=== PATIENT | female | born 1940 | race Caucasian/White ===

== ENCOUNTER → 2019-02-11 | Day surgery (SDC) | payer MEDICARE, BC ==
[2019-02-07 12:47] LABS: BASOPHILS # (AUTO) 0.1 (0.0-0.1); BASOPHILS % 0.6 % (0.0-1.0); EOSINOPHILS # (AUTO) 0.2 (0.0-0.4); EOSINOPHILS % 1.6 % (0.0-6.0); HEMATOCRIT 37.9 % (34.2-44.1); HEMOGLOBIN 12.3 g/dL (12.0-16.0); LYMPHOCYTES # (AUTO) 5.9 (1.0-3.2); LYMPHOCYTES % 52.7 % (18.0-39.1); MEAN CORPUSCULAR HEMOGLOBIN 29.9 pg (28-32); MEAN CORPUSCULAR HGB CONC 32.5 g/dL (31-35); MEAN CORPUSCULAR VOLUME 92.2 fL (81-99); MONOCYTES # (AUTO) 0.5 (0.2-0.8); MONOCYTES % 4.4 % (4.4-11.3); NEUTROPHILS # (AUTO) 4.4 (2.1-6.9); NEUTROPHILS % 39.7 % (38.7-80.0); PLATELET COUNT 247 x10e3/uL (140-360); RED BLOOD COUNT 4.11 x10e6/uL (3.6-5.1); RED CELL DISTRIBUTION WIDTH 13.2 % (11.7-14.4)
[2019-02-07 13:11] LABS: ANION GAP 9.6 mmol/L (8-16); BLOOD UREA NITROGEN 17 mg/dL (7-26); BUN/CREATININE RATIO 22 (6-25); CALCIUM 10.9 mg/dL (8.4-10.2); CARBON DIOXIDE 28 mmol/L (22-29); CHLORIDE 106 mmol/L (98-107); EST GLOMERULAR FILTRATION RATE > 60 ML/MIN (60-); POTASSIUM 4.6 mmol/L (3.5-5.1); SODIUM 139 mmol/L (136-145)
--- NOTE | 2019-02-07 13:27 | Diagnostic Imaging Report ---
Chest, PA and lateral. History: Preoperative evaluation for finger surgery. Comparison: None available. Discussion: The cardiomediastinal silhouette and pulmonary vasculature are within normal limits. The lungs are clear without evidence of consolidation or effusion. There are no acute osseous abnormalities. IMPRESSION: No radiographic evidence of acute cardiopulmonary abnormality. Signed by: Hernán Del Rosario MD on 02/07/2019 1:24 PM
[2019-02-07 13:32] LABS: CREATININE, SERUM 0.84 mg/dL (0.57-1.11); GLUCOSE 93 mg/dL (74-118)
[~2019-02-11] MED LIST: BUPIVACAINE HCL 0.5% INJ 30 ML VIAL INJ ONE; CLINDAMYCIN 600MG / 50ML 50 ML IV ONE; FENOFIBRATE145 MG PO; FENTANYL CITRATE/PF 100MCG/2 ML INJ ONE; HYDROCHLOROTH12.5 M1 PO; LIDOCAINE HCL 1% LOCAL INJ 20 ML VIAL ONE; LIDOCAINE HCL 2% LOCAL INJ 5 ML SDV VIAL INJ ONE; MICARDIS40 MG PO; MUPIROCIN 2% OINT 22 GM TUBE ONE; ONDANSETRON HCL INJ 2MG/ML 2ML 2 MG/ML VIAL ONE; PROPOFOL IV EMULSION 10 MG/ML 20 ML VIAL ONE; VITAMIN D31000 UNI1 PO
--- OUTSIDE RECORDS SUMMARY | 2019-02-11 05:09 | XMS REPORT | Clinical Summary ---
Author Author [facility] Address Unknown Phone Unavailable Care Team Providers Care Medical Manager Name Role Phone Inocente Calderón MD PCP Allergies Comments Active Allergy Reactions Severity Noted Date Penicillins 08/05/2015 Salicylates 08/05/2015 Vancomycin 08/05/2015 Medications End Date Status Medication Sig Dispensed Refills Start Date 11/27/2019 Active telmisartan (MICARDIS) 20 Take 1 tablet 90 tablet 1 MG tablet (20 mg total) 9 by mouth daily. Active fenofibrate (LOFIBRA) 54 Take 1 tablet 90 tablet 1 MG tablet (54 mg total) 9 by mouth once daily. 11/27/2019 Active hydroCHLOROthiazide Take 1 tablet 90 tablet 1 (HYDRODIURIL) 12.5 MG (12.5 mg 9 tablet total) by mouth daily. 05/30/2018 Discontinued (Reorder) fenofibrate (LOFIBRA) 54 Take 1 tablet 90 tablet 1 MG tablet (54 mg total) 8 by mouth once daily. 05/30/2018 Discontinued (Reorder) telmisartan (MICARDIS) 20 Take 1 tablet 30 tablet 5 MG tablet (20 mg total) 8 by mouth daily. 05/30/2018 Discontinued (Reorder) hydroCHLOROthiazide Take 1 tablet 30 tablet 5 (HYDRODIURIL) 12.5 MG (12.5 mg 8 tablet total) by mouth daily. 11/27/2018 Discontinued (Reorder) telmisartan (MICARDIS) 20 Take 1 tablet 30 tablet 5 MG tablet (20 mg total) 9 by mouth daily. 11/27/2018 Discontinued (Reorder) fenofibrate (LOFIBRA) 54 Take 1 tablet 90 tablet 1 MG tablet (54 mg total) 9 by mouth once daily. 11/27/2018 Discontinued (Reorder) hydroCHLOROthiazide Take 1 tablet 30 tablet 5 (HYDRODIURIL) 12.5 MG (12.5 mg 9 tablet total) by mouth daily. Active Problems Problem Noted Date Family history of rheumatoid arthritis 11/27/2018 Osteoarthritis of right shoulder 11/27/2018 Lumbosacral dysfunction 11/27/2018 Influenza vaccination given 05/30/2018 Aspirin intolerance 05/30/2017 BMI 28.0-28.9,adult 05/30/2017 Pneumococcal vaccination administered at current visit 11/17/2016 Chronic paronychia of finger 11/17/2016 Colon cancer screening 09/27/2015 Menopausal syndrome 08/05/2015 Cervical spondylosis without myelopathy 02/19/2013 Mixed hyperlipidemia 09/08/2011 Osteoarthritis of knee 09/08/2011 Benign essential hypertension 12/12/2010 Degenerative joint disease involving multiple joints 12/12/2010 Resolved Problems Problem Noted Date Resolved Date Hypercalcemia 02/19/2013 11/27/2018 Adrenogenital disorder 12/12/2010 05/30/2018 Encounters Care Team Description Date Type Specialty Inocente Calderón MD Benign essential hypertension (Primary Dx); Colon cancer screening; Mixed hyperlipidemia; Lumbosacral dysfunction; Osteoarthritis of right shoulder, unspecified osteoarthritis type; Family history of rheumatoid arthritis 11/27/2018 Office Visit Family Medicine Maria Del Carmen Serrano MA Special screening for malignant neoplasms, colon (Primary Dx); Colon cancer screening 07/03/2018 Orders Only Family Medicine Inocente Calderón MD 05/31/2018 Orders Only Family Medicine Inocente Calderón MD Benign essential hypertension (Primary Dx); BMI 29.0-29.9,adult; Mixed hyperlipidemia; Influenza vaccination given; Colon cancer screening; Hypercalcemia; Seasonal allergic rhinitis due to pollen 05/30/2018 Office Visit Family Medicine after 02/10/2018 Immunizations Name Administration Dates Next Due FLUZONE HIGH-DOSE PF 05/30/2018, 02/21/2017 Pneumococcal Conjugate 11/17/2016 13-Valent Pneumococcal 11/27/2017 Polysaccharide Family History Medical History Relation Name Comments Heart attack Father Alzheimer's disease Mother Heart failure Mother Relation Name Status Comments Father massive ht attack cause of Mother Social History Date Tobacco Use Types Packs/Day Years Used Never Smoker Smokeless Tobacco: Never Used Tobacco Cessation: Counseling Given: No Drinks/Week oz/Week Comments Alcohol Use No Sex Assigned at Date Recorded Not on file Industry Job Start Date Occupation Not on file Not on file Not on file Travel End Travel History Travel Start No recent travel history available. Last Filed Vital Signs Reading Time Taken Comments Vital Sign 135/74 11/27/2018 8:18 AM CDT Blood Pressure 50 11/27/2018 8:18 AM CDT Pulse 36.7 C (98 F) 11/27/2018 8:18 AM CDT Temperature - - Respiratory Rate 98% 11/27/2018 8:18 AM CDT Oxygen Saturation - - Inhaled Oxygen Concentration 80.7 kg (178 lb) 11/27/2018 8:18 AM CDT Weight 167.6 cm (5' 6") 11/27/2018 8:18 AM CDT Height 28.73 11/27/2018 8:18 AM CDT Body Mass Index Plan of Treatment Care Team Description Date Type Specialty Inocente Calderón MD [address] [place] [id number] [phone] 05/27/2019 Office Visit Family Medicine Health Maintenance Due Date Last Done Comments COLONOSCOPY SCREENING 1992 SHINGLES VACCINES (#1) 1992 INFLUENZA VACCINE 12/19/2018 05/30/2018, 02/21/2017 65+ PNEUMOCOCCAL VACCINE Completed 11/27/2017, 11/17/2016 Procedures Comments Procedure Name Priority Date/Time Associated Diagnosis XR LUMBAR SPINE 2 OR 3 VW Routine 11/27/2018 Lumbosacral dysfunction 10:40 AM CDT XR SHOULDER 2+ VW RIGHT Routine 11/27/2018 Osteoarthritis of right 10:40 AM CDT shoulder, unspecified osteoarthritis type RHEUMATOID FACTOR Routine 11/27/2018 Osteoarthritis of right 9:13 AM CDT shoulder, unspecified osteoarthritis type Family history of rheumatoid arthritis SEDIMENTATION RATE Routine 11/27/2018 Osteoarthritis of right 9:13 AM CDT shoulder, unspecified osteoarthritis type Family history of rheumatoid arthritis ECG 12-LEAD Routine 11/27/2018 Benign essential 8:04 AM CDT hypertension BASIC METABOLIC PANEL Routine 11/18/2018 Benign essential 8:18 AM CDT hypertension ZZBLOOD OCCULT Routine 07/10/2018 Special screening for PEROXIDASE, DIGITAL EXAM 12:00 AM ACTIVITIES COORDINATOR malignant neoplasms, colon Colon cancer screening ZZBLOOD OCCULT Routine 05/31/2018 PEROXIDASE, DIGITAL EXAM 12:00 AM ACTIVITIES COORDINATOR CBC WITH PLATELET AND Routine 05/24/2018 Benign essential DIFFERENTIAL 8:10 AM ACTIVITIES COORDINATOR hypertension BMI 29.0-29.9,adult URINALYSIS, AUTOMATED Routine 05/24/2018 Benign essential WITH MICROSCOPY 8:10 AM ACTIVITIES COORDINATOR hypertension HEPATIC FUNCTION PANEL Routine 05/24/2018 Mixed hyperlipidemia 8:10 AM ACTIVITIES COORDINATOR LIPID PANEL Routine 05/24/2018 Mixed hyperlipidemia 8:10 AM ACTIVITIES COORDINATOR BASIC METABOLIC PANEL Routine 05/24/2018 Benign essential 8:10 AM ACTIVITIES COORDINATOR hypertension after 02/10/2018 Results * XR Lumbar Spine 2 Or 3 Vw (11/27/2018 10:40 AM CDT) Specimen Narrative Performed At EXAMINATION:XR LUMBAR SPINE 2 OR 3 VW [facility] CLINICAL HISTORY:M99.03 Segmental and somatic dysfunction of lumbar region, DJD COMPARISON:June 08, 2014 lumbar spine FINDINGS: 4 view examination lumbar spine performed. Lumbar vertebrae are present. 6 nonrib-bearing vertebrae. Stable moderate disc space narrowing L5-Tand T-S1 Slight progressive disc space narrowing L4-5 compared to previous. Minimal grade 1 spondylolisthesis L5 on transitional unchanged Severe degenerative facet hypertrophy 4 5, L5 transition and transitional-S1 similar to previous. Moderate anterolateral osteophytes throughout the lumbar spine otherwise unchanged. Mild degenerative SI joint changes stable No compressive abnormality IMPRESSION: Slight progressive degenerative changes compared to June 08, 2014 No compressive abnormality seen. 6 nonrib-bearing lumbar vertebrae [id number] Procedure Note Hm Interface, Radiology Results Incoming - 11/27/2018 10:51 AM CDT EXAMINATION: XR LUMBAR SPINE 2 OR 3 VW CLINICAL HISTORY: M99.03 Segmental and somatic dysfunction of lumbar region, DJD COMPARISON: June 08, 2014 lumbar spine FINDINGS: 4 view examination lumbar spine performed. Lumbar vertebrae are present. 6 nonrib- bearing vertebrae. Stable moderate disc space narrowing L5-Tand T-S1 Slight progressive disc space narrowing L4-5 compared to previous. Minimal grade 1 spondylolisthesis L5 on transitional unchanged Severe degenerative facet hypertrophy 4 5, L5 transition and transitional-S1 similar to previous. Moderate anterolateral osteophytes throughout the lumbar spine otherwise unchanged. Mild degenerative SI joint changes stable No compressive abnormality IMPRESSION: Slight progressive degenerative changes compared to June 08, 2014 No compressive abnormality seen. 6 nonrib-bearing lumbar vertebrae [id number] Performing Organization Address City/[facility]/Zipcode Phone Number [facility] [address] [place] [address] * XR Shoulder 2+ Vw Right (11/27/2018 10:40 AM CDT) Specimen Narrative Performed At EXAMINATION:XR SHOULDER 2VW RIGHT [facility] CLINICAL HISTORY:M19.011 Primary osteoarthritisright shoulder, right shoulder pain COMPARISON:None Internal and external rotation AP radiographs, and scapular Y radiograph of the right shoulder are obtained. IMPRESSION: There is mild AC joint osteoarthritis. The glenohumeral joint is normal. Small cystic changes in the greater tuberosity the proximal humerus are probably degenerative and related to the rotator cuff, but the acromiohumeral interval space is preserved arguing against a full-thickness tear. No aggressive skeletal lesion is seen. No significant soft tissue abnormality is seen. [id number] Procedure Note Hm Interface, Radiology Results Incoming - 11/27/2018 11:03 AM CDT EXAMINATION: XR SHOULDER 2 VW RIGHT CLINICAL HISTORY: M19.011 Primary osteoarthritis right shoulder, right shoulder pain COMPARISON: None Internal and external rotation AP radiographs, and scapular Y radiograph of the right shoulder are obtained. IMPRESSION: There is mild AC joint osteoarthritis. The glenohumeral joint is normal. Small cystic changes in the greater tuberosity the proximal humerus are probably degenerative and related to the rotator cuff, but the acromiohumeral interval space is preserved arguing against a full-thickness tear. No aggressive skeletal lesion is seen. No significant soft tissue abnormality is seen. [id number] Performing Organization Address City/[facility]/[employer] (ABAM) Phone Number [facility] [address] [place] [address] * Sedimentation rate (11/27/2018 9:13 AM CDT) Sedimentation 6 < OR=30 mm/h [facility] [place] Specimen Blood Resulting Agency Comment Performing Organization Information: Site ID: [id number] Name: [facility] Address: [address] [place] [id number] Director: Re Boyce Performing Organization Address [facility] Phone Number [facility] [place] [address] * Rheumatoid factor (11/27/2018 9:13 AM CDT) Rheumatoid <14 <14 IU/mL [facility] factor [facility] [place] Specimen Blood Resulting Agency Comment Performing Organization Information: Site ID: A Name: [facility] Address: [address] [place] [phone] Director: Re Boyce Performing Organization Address [facility] Phone Number [facility] [place] [address] * ECG 12 lead (11/27/2018 8:04 AM CDT) Ventricular 47 [facility] MUSE rate Atrial rate 47 [facility] M[facility] IN interval 190 [facility] QRSD interval 98 [facility] QT interval 428 [facility] QTC interval 378 [facility] P axis 1 54 [facility] M[facility] QRS axis 1 -46 [facility] M[facility] T wave axis 35 [facility] EKG impression Sinus bradycardia-Incomplete [facility] right bundle branch block-Left anterior fascicular block-Abnormal ECG-No previous ECGs available- Specimen Narrative Performed At Performing Organization Address [facility] Phone Number [facility] [address] [place] [address] * Basic metabolic panel (11/18/2018 8:18 AM CDT) Only the most recent of 2 results within the time period is included. Glucose 101 (H) 65 - 99 mg/dL [facility] Comment: [facility] reference interval For someone without known diabetes, a glucose value between 100 and 125 mg/dL is consistent with prediabetes and should be confirmed with a follow-up test. BUN, whole 19 7 - 25 mg/dL [facility] blood [facility] [place] Creatinine 0.83 0.60 - 0.93 mg/dL [facility] Comment: DIAGNOSTICS For patients >49 years of age, [place] the reference limit for Creatinine is approximately 13% higher for people identified as -[place]. EGFR Non-Afr. 69 > OR=60 [facility] [place] mL/min/1.73m2 [facility] [place] EGFR 80 > OR=60 [facility] [place] mL/min/1.73m2 [facility] [place] BUN/creatinine NOT APPLICABLE 6 - 22 (calc) [facility] ratio [facility] [place] Sodium 141 135 - 146 mmol/L [facility] [place] Potassium 4.5 3.5 - 5.3 mmol/L [facility] [place] Chloride 107 98 - 110 mmol/L [facility] [place] CO2 27 20 - 32 mmol/L [facility] [place] Calcium 10.4 8.6 - 10.4 mg/dL [facility] [place] Specimen Blood Resulting Agency Comment Performing Organization Information: Site ID: [id number] Name: [facility] Address: [address] [place] [phone] Director: Re Boyce Performing Organization Address City/State/[facility] Centercode Phone Number [facility] [address] * Fecal Globin by Immunochemistry (InSure), Medicare Screen (07/10/2018 12:00 AM ACTIVITIES COORDINATOR) Only the most recent of 2 results within the time period is included. Result SEE NOTEComment: Not Detected [facility] [place] Specimen Stool Resulting Agency Comment Performing Organization Information: Site ID: [id number] Name: [facility] Address: [address] [place] [phone] Director: Re Boyce Performing Organization Address City/[facility] Cent[facility] Phone Number [facility] [address] [address] * Urinalysis, automated with microscopy (05/24/2018 8:10 AM ACTIVITIES COORDINATOR) Color, UA YELLOW YELLOW [facility] [place] Appearance CLEAR CLEAR [facility] [place] Specific 1.017 1.001 - 1.035 [facility] gravity, urine [facility] [place] pH, urine 5.5 5.0 - 8.0 [facility] [place] Glucose, urine NEGATIVE NEGATIVE [facility] [place] Bilirubin, UA NEGATIVE NEGATIVE [facility] [place] Ketones, UA NEGATIVE NEGATIVE [facility] [place] Occult blood, NEGATIVE NEGATIVE [facility] urine [facility] [place] Protein, UA NEGATIVE NEGATIVE [facility] [place] Nitrite, UA NEGATIVE NEGATIVE [facility] [place] Leukocyte NEGATIVE NEGATIVE [facility] esterase, UA [facility] [place] WBC, UA NONE SEEN < OR=5 /HPF [facility] [place] RBC, UA NONE SEEN < OR=2 /HPF [facility] [place] Squamous NONE SEEN < OR=5 /HPF [facility] epithelial DIAGNOSTICS cells, UA [place] Bacteria, UA NONE SEEN NONE SEEN /HPF [facility] [place] Hyaline casts, NONE SEEN NONE SEEN /LPF [facility] UA [facility] [place] Specimen Urine Narrative Performed At FASTING: UNKNOWN [facility] Resulting Agency Comment Performing Organization Information: Site ID: [id number] Name: [facility] Address: [address] [place] [phone] Director: Re Boyce Performing Organization Address City/State/Zipcode Phone Number [facility] [place] [address] [place] [address] * CBC with platelet and differential (05/24/2018 8:10 AM ACTIVITIES COORDINATOR) WBC 10.3 3.8 - 10.8 [facility] Thousand/uL [facility] [place] RBC 4.32 3.80 - 5.10 [facility] Million/uL [facility] [place] HGB 12.8 11.7 - 15.5 g/dL [facility] [place] HCT 39.5 35.0 - 45.0 % [facility] [place] MCV 91.4 80.0 - 100.0 fL [facility] [place] MCH 29.6 27.0 - 33.0 pg [facility] [place] MCHC 32.4 32.0 - 36.0 g/dL [facility] [place] RDW 13.1 11.0 - 15.0 % [facility] [place] Platelet count 264 140 - 400 [facility] Thousand/uL [facility] [place] MPV 10.8 7.5 - 12.5 fL [facility] [place] Neutrophils, 4,326 1,500 - 7,800 [facility] absolute cells/uL [facility] [place] Lymphocytes, 5,232 (H) 850 - 3,900 cells/uL [facility] absolute [facility] [place] Monocytes, 484 200 - 950 cells/uL [facility] absolute [facility] [place] Eosinophils, 185 15 - 500 cells/uL [facility] absolute [facility] [place] Basophils, 72 0 - 200 cells/uL [facility] absolute [facility] [place] Neutrophils 42 % [facility] [place] Lymphocytes 50.8 % [facility] [place] Monocytes 4.7 % [facility] [place] Eosinophils 1.8 % [facility] [place] Basophils + RC 0.7 % [facility] [place] Specimen Blood Narrative Performed At FASTING: UNKNOWN [facility] Resulting Agency Comment Performing Organization Information: Site ID: [id number] Name: [facility] Address: [address] [place] [phone] Director: Re Boyce Performing Organization Address [facility] Phone Number [facility] [address] [address] * Hepatic function panel (05/24/2018 8:10 AM ACTIVITIES COORDINATOR) Pathologist [facility] Protein 7.2 6.1 - 8.1 g/dL [facility] [place] Albumin, S 4.4 3.6 - 5.1 g/dL [facility] [place] Globulin, total 2.8 1.9 - 3.7 g/dL [facility] (calc) [facility] [place] Albumin/globuli 1.6 1.0 - 2.5 (calc) [facility] n ratio [facility] [place] Total bilirubin 0.3 0.2 - 1.2 mg/dL [facility] [place] Bilirubin 0.1 < OR=0.2 mg/dL [facility] direct [facility] [place] Bilirubin, 0.2 0.2 - 1.2 mg/dL [facility] indirect (calc) [facility] [place] Alkaline 63 33 - 130 U/L [facility] phosphatase [facility] [place] AST 13 10 - 35 U/L [facility] [place] ALT 11 6 - 29 U/L [facility] [place] Specimen Blood Narrative Performed At FASTING: UNKNOWN [facility] Resulting Agency Comment Performing Organization Information: Site ID: [id number] Name: [facility] Address: [address] [place] [phone] Director: Re Boyce Performing Organization Address [facility] Phone Number [facility] [address] [address] * Lipid panel (05/24/2018 8:10 AM ACTIVITIES COORDINATOR) Pathologist [facility] Cholesterol, 174 <200 mg/dL [facility] total [facility] [place] HDL cholesterol 34 (L) >50 mg/dL [facility] [place] Triglycerides 128 <150 mg/dL [facility] [place] LDL cholesterol 116 (H) mg/dL (calc) [facility] calculated Comment: DIAGNOSTICS Reference range: <100 [place] Desirable range <100 mg/dL for primary prevention; <70 mg/dL for patients with CHD or diabetic patients with > or=2 CHD risk factors. LDL-C is now calculated using the Carol calculation, which is a validated novel method providing better accuracy than the Friedewald equation in the estimation of LDL-C. Miguel CORDERO et al. DANNY. 2013;310(19): 6201-2263 (http://education.Xfire.Tachyus/faq/TBY811) Cholesterol/HDL 5.1 (H) <5.0 (calc) [facility] [employer] [facility] [place] Non-HDL 140 (H) <130 mg/dL (calc) [facility] cholesterol Comment: DIAGNOSTICS For patients with diabetes [place] plus 1 major ASCVD risk factor, treating to a non-HDL-C goal of <100 mg/dL (LDL-C of <70 mg/dL) is considered a therapeutic option. Specimen Blood Narrative Performed At FASTING: UNKNOWN [facility] Resulting Agency Comment Performing Organization Information: Site ID: RGA Name: [facility] Address: [address] [place] [phone] Director: Re Boyce Performing Organization Address City/State/Zipcode Phone Number [facility] [place] [address] [place], [place] [phone] after 02/10/2018 Insurance Type Payer Benefit Subscriber ID Effective Phone Address Plan / Dates Group Medicare MEDICARE MEDICARE xxxxxxxxxxx 2007-P [place], PART A AND resent [place] B PPO BCBS BCBS xxxxxxxxxxxx 2017-P CHOICE resent PPO/ROSALEE L EMPL PPO Advance Directives For more information, please contact: [phone] Patient Medical Sales Representative Explanation Type Date Recorded Advance Directives, Living Will and Medical Power of Mine Supervisor
--- OUTSIDE RECORDS SUMMARY | 2019-02-11 05:09 | XMS REPORT ---
Author Author [facility] Address Unknown Phone Unavailable Care Team Providers Care Field Machinist Name Role Phone BALWINDER MONTIEL Unavailable Unavailable Problems This patient has no known problems. Allergies, Adverse Reactions, Alerts This patient has no known allergies or adverse reactions. Medications This patient has no known medications. Results Test Description Test Time Test Comments Text Results Atomic Results Result Comments CHEST 2 VIEWS 2019-02-07 13:24:00 [place] [address] Patient Name: RAMANA MALDONADO MR #: [id number] : 1940 Age/Sex: 78/F Req #: [id number] Adm Physician: Ordered by: BALWINDER MONTIEL MD Report #: [id number] Location: OR Room/Bed: Procedure: [id number] DX/CHEST 2 VIEWS Exam Date: Exam Time: REPORT STATUS: Signed Chest, PA and lateral. History: Preoperative evaluation for finger surgery. Comparison: None available. Discussion: The cardiomediastinal silhouette and pulmonary vasculature are within normal limits. The lungs are clear without evidence of consolidation or effusion. There are no acute osseous abnormalities. IMPRESSION: No radiographic evidence of acute cardiopulmonary abnormality. Signed by: Hernán Turcios MD on 02/07/2019 1:24 PM Dictated By: HERNÁN TURCIOS MD 1324 Transcribed By: HANNA on 02/07/19 1324 COPY TO: BALWINDER MONTIEL MD
[2019-02-11 07:30] VITALS: BP 101/52
--- NOTE | 2019-02-11 20:26 | Operative Report ---
DATE OF PROCEDURE: 02/11/2019 SURGEON: Saw Granados MD PREOPERATIVE DIAGNOSIS: Onychomycosis, left ring finger. POSTOPERATIVE DIAGNOSIS: Onychomycosis, left ring finger. PROCEDURE: Avulsion of nail plate, left ring finger. ANESTHESIA: MAC/local. HISTORY: The patient is a 78-year-old female, who has severe onychomycosis that has been resistant to oral antifungal treatment. Risks, benefits, and alternatives of procedure discussed with the patient. She is prepared to undergo the procedure as outlined. PROCEDURE IN DETAIL: The patient was brought to the operating theater. The patient was marked preoperatively in the holding area. She was brought to the operating theater and after the induction of adequate IV sedation, she was prepped and draped in a supine position and a time-out was performed. A digital block was placed around the base of the left ring finger consisting of 5 mL of 1% Xylocaine plain. The tourniquet was then placed around the finger and the nail plate was avulsed using a Tucker elevator. The onychomycosis was then cleansed and the finger was dressed with mupirocin ointment, Xeroform gauze, and a sterile dressing. The tourniquet was removed. The finger pinked up nicely and the patient returned to recovery room in satisfactory condition and discharged with a postoperative instruction sheet as well as a followup appointment. Saw Granados MD ER/MODL /[id number]
== END | disposition home or self-care (01) ==
LOC: OR 05:00
PROVIDERS: ATTEND Plastic Surgery
DX: B35.1 Tinea unguium (principal); I10 Essential (primary) hypertension; Z01.810 Encounter for preprocedural cardiovascular examination; Z01.812 Encounter for preprocedural laboratory examination; Z01.818 Encounter for other preprocedural examination
CPT/HCPCS: 11730; 36415; 71046; 80048; 85025; 93005; J2001 ×2; J2405; J2704; J3010